=== PATIENT | female | born 1950 | race Caucasian/White ===

== ENCOUNTER 2024-12-30 12:13 | Emergency (ER) | payer MEDICARE, BC, SELFPAY ==
--- OUTSIDE RECORDS SUMMARY | 2024-12-30 12:16 | XMS_ITS | Clinical Summary ---
Author Organization [facility]formerly known as [facility] Address [address] [place] [id number] Care Team Providers Care Data Conversion Developer Name Role Phone Nigel, Val Villanueva MD Primary Care Provider Allergies Active Allergy Reactions Criticality Noted Date Comments Amoxicillin-Pot Clavulanate GI Upset 05/14/19 18 Cat Hair Standardized Allergenic Extract Itching 05/14/2017 Gadolinium-Containing Contrast Media Itching 05/14/2017 Levofloxacin *Unknown 05/14/2017 Pollen Extracts Itching 05/14/2017 Medications cholecalciferol, vitamin D3, 1,000 unit/drop drop Take by mouth. 0 8 Active triamcinolone (ARISTOCORT) 0.1 % ointmentIndication s:Lichenification Apply topically to affected area(s) two times daily. 30 g 2 Active valACYclovir (VALTREX) 1 gram tabletIndications: Herpes simplex infection Take 2 tablets by mouth at onset and 2 tablets 12 hours later 4 Tablet 4 3 Active ALPRAZolam (XANAX) 0.5 mg tabletIndications: Situational anxiety,Irritable bowel syndrome, unspecified type TAKE 1 TABLET BY MOUTH EVERY 12 HOURS IF NEEDED FOR ANXIETY. 30 Tablet 4 Active lisinopriL (PRINIVIL; ZESTRIL) 10 mg tabletIndications: Hypertension, unspecified type Take 1 Tablet (10 mg) by mouth once daily. 90 Tablet 3 4 Active pravastatin (PRAVACHOL) 20 mg tabletIndications: Hyperlipidemia, unspecified hyperlipidemia type Take 1 Tablet (20 mg) by mouth at bedtime. 90 Tablet 3 4 Active triamcinolone 0.1% (KENALOG IN ORABASE) 0.1 % pasteIndications:P apilloma of buccal mucosa Apply small amount to affected area in mouth 2 times a day. 5 g 1 5 Active FLUoxetine 40 mg capsuleIndications :Anxiety Take 1 Capsule (40 mg) by mouth once daily in the morning. 90 Capsule 3 5 Active Active Problems Problem Noted Date Diagnosed Date Skin cancer 11/05/2018 Overview (12/06/2022): 06/19/19 right upper arm, superficial BCC, ED&C treated 09/11/19, 2016 BCC, forehead, mohs treated 07/07, 2015 Right dorsal hand SCC, ED&C treated, 10/31/18 left dorsal forearm, superficial BCC, ED & C done 12/12/18 Yuki PATEL-C 11/22/22 right lower leg, atypical endophytic squamous proliferation, excised 11/30/22 Michaela Zhu MD HTN (hypertension) 05/14/2017 Hyperlipidemia, unspecified 05/14/2017 IBS (irritable bowel syndrome) 05/14/2017 Osteopenia 05/14/2017 Encounters Date Type Department Care Team Description 12/30/2024 Nurse Triage [facility] [address] [place] [address] Val Manning MD Head Injury 12/29/2024 7:25 AM CDT Office Visit [facility] [address] [place] [address] Val Manning MD Follow Up (10/20 Sores in mouth. About 2 weeks ago started using a mouth guard she got from the dentist to hopefully help the sore in her mouth and she now has more.) 12/29/2024 Travel 12/24/2024 Travel 11/28/2024 Orders Only [facility] Scanner 1 scan: (1-Ord) TAREEN DERMATOLOGY, BIOPSY BY SHAVE METHOD RIGHT DISTAL PRETIBIAL REGION, 11/28/2024 10/23/2024 Telephone [facility] [address] [place] [address] Val Manning MD Medication Management; Returning Call 2024 7:25 AM CDT Office Visit [facility] [address] [place] [address] Val Manning MD Sores In Mouth (Appeared in mouth in March 2024, went to ENT and was told it was related to anxiety. Was told to use Biotin mouth wash for the sores and was given medication to apply and it does not help.); Ear Problem (Ringing in left ear, been going on for a while. Now starting in right ear. Clicking in jaw near left ear.); General Illness/Other (Voice, feels she really has to think about it to get her voice and to form words.) 2024 Travel 10/17/2024 Travel from Last 3 Months Immunizations Immunization Administration Dates Next Due Amb Influenza, Inactivated A IIV4 (Age 65+ Years) Preserv Free 01/19/2020 COVID-19 VACCINE SPIKEVAX (M ODERNA 50MCG/0.5ML) 12YO+ PFS 01/17/2024 COVID-19 vaccine ([employer] NTech 30mcg/0.3mL) 12YO+ BIVALENT PF, MDV 01/19/2022 COVID-19 vaccine ([employer] NTech 30mcg/0.3mL) PF, MDV 06/13/2020,05/21/2020 Influenza A (H1N1), Inactivated 03/17/2009 Influenza, High-dose Inactivated 02/14/2017,100 10/2015 Influenza, Inactivated AIIV4 (Age 65+ Years) Preserv Free 01/04/2023,01/11/2022,02/02/2021 Influenza, Inactivated IIV3 (Age 65+ Years) Preserv Free 01/10/2024,01/29/2019,01/17/2018 Pneumococcal Poly,23-Valent (Pneumovax) 05/14/19 18 Pneumococcal conj 13-Valent (Prevnar 13) 016 Tdap 02/28/2019,02/09/2009 Zoster (Shingrix-RZV, recombinant) 08/05/2018, Zoster (Zostavax-ZVL, live) 03/03/2011 Family History Medical History Relation Name Comments Alzheimer's disease Father Aneurysm Father Cancer-breast Maternal Grandmother Brain cancer Sister Cancer-colon No Family History Cancer-ovarian No Family History Cancer-prostate No Family History Relation Name Status Comments Father Maternal Grandmother Sister Social History Tobacco Use Types Packs/Day Years Used Date Smoking Tobacco: Never Smokeless Tobacco: Never Tobacco Cessation:Counseling Given: Yes Alcohol Use Standard Drinks/Week Comments Yes 0 (1 standard drink = 0.6 oz pur e alcohol) occasionaly PHQ-2 Answer Date Recorded PHQ-2 TOTAL SCORE 2 04/18/2024 Social Connections Answer Date Recorded Do you often feel lonely or isolated from those around you? 0 04/18/2024 Alcohol Use Answer Date Recorded How often do you have a drink containing alcohol ? 0 12/29/2024 Average Number of Drinks Not on file 025 Frequency of Binge Drinking Not on file 11/2024 Financial Resource Strain Answer Date R ecorded Difficulty of Paying Living Expenses 3 04/18/2024 Difficulty of Paying Living Expenses Not on file 04/18/2024 Food Insecurity Answer Date Recorded Do you worry your food will run out before you are able to buy more? 1 04/18/2024 Transportation Needs Answer Date Record ed Does lack of transportation keep you from medica l appointments? 1 04/18/2024 Does lack of transportation keep you from work, meetings or getting things that you need? 1 04/18/2024 Housing Stability Answer Date Recorded What is your housing situation today? 1 04/18/2024 Utilities Answer Date Recorded Do you have trouble paying f or utilities (for example, heat, electricity, water, phone)? 1 04/18/2024 Comments No Sex and Gender Information Value Date Recorded Sex Assigned at Not on file Legal Sex Female 8:35 AM DNA SEQUENCING ASSOCIATE Gender Identity Not on file Sexual Orientation Not on file Obstetrics History Last Filed Vital Signs Vital Sign Reading Time Taken Comments Blood Pressure 146/74 12/29/2024 7:25 AM CDT Pulse 88 12/29/2024 7:25 AM CDT Temperature 36.4 C (97.6 F) 06/08/2020 10:12 AM DNA SEQUENCING ASSOCIATE Respiratory Rate 16 06/08/2020 10:12 AM DNA SEQUENCING ASSOCIATE Oxygen Saturation 99% 12/29/2024 7:25 AM CDT Inhaled Oxygen Concentration - - Weight 60.1 kg (132 lb 9.6 oz) 12/29/2024 7:25 A M CDT Height 165.1 cm (5' 5) 12/29/2024 7:25 AM CDT Body Mass Index 22.07 12/29/2024 7:25 AM CDT Plan of Treatment Upcoming Encounters Date Type Department Care Team (Late st Contact Info) Description 01/16/2025 8:00 AM CDT Ancillary Procedure [facility] [address] [id number] Health Maintenance Due Date Last Done Comments COVID-19 vaccine series ( season) 2024 01/17/2024, 02/05/2023, 01/19/2022, Additional history exists Influenza Vaccine (#1) 2024 , 01/04/2023, 01/11/2022, Additional history exists Medicare Wellness for age 65+ 04/19/2025 04/18/2024, 04/12/2023, 03/15/2022, Additional history exists Depression screening for age 12+ 05/12/2025 05/12/2024, 04/18/2024, 04/12/2023, Additional history exists Mammogram for age 45-75 05/12/2025 05/12/19, 05/09/2023, 05/03/2022, Additional history exists RSV vaccine for adults or (1 - 1-dose 75+ series) 2025 BMI (ht and wt on same day) for age 18+ 12/29/2025 12/29/2024, 2024, 04/18/2024, Additional history exists Fecal testing sDNA-FIT (Cologuard) for age 45-75 04/26/2027 04/26/2024 Tetanus booster 02/28/2029 02/28/2019, 02/09/2009 Lipids for age 45-75 04/18/2029 04/18/2024, 04/12/2023, 03/15/2022, Additional history exists Pneumococcal series for age 50+ Completed 05/14/2017, 02/29/2016 Zoster (shingles) series for age 50+ Completed 08/05/2018, 02/28/2018, 03/03/2011 Hepatitis C screening for age 18-79 Completed 03/08/2020 DEXA/DXA scan for age 65+ Completed 04/22/2024, Hepatitis B series for 19+ Aged Out N o longer eligible based on patient's age to complete this topic Procedures Procedure Name Priority Date/Time Associated Diagnosis Comments CBC WITH AUTO DIFFERENTIAL Routine 12/29/2024 8:09 AM CDT Aphthous ulcer Fatigue, unspecified type TSH WITH REFLEX Routine 12/29/2024 8:09 AM CDT Fatigue, unspecified type VITAMIN B12 Routine 12/29/2024 8:09 AM CDT Aphthous ulcer CBC WITH AUTO DIFFERENTIAL Routine 12/29/2024 8:09 AM CDT Aphthous ulcer Fatigue, unspecified type SCAN-OPERATIVE/PROCE DURE REPORT 11/28/2024 12:00 AM CDT XR MAMMO MONTY BILAT SCREEN Routine 05/12/2024 8:03 AM DNA SEQUENCING ASSOCIATE Visit for screening mammogram SDNA-FIT EXTERNAL (COLOGUARD) Routine 04/26/2024 6:30 PM DNA SEQUENCING ASSOCIATE Screening for colon cancer XR DXA BONE DENSITY 2 SITES AXIAL Routine 04/22/2024 9:10 AM DNA SEQUENCING ASSOCIATE Menopause LIPID PANEL W REFLEX MEASURED LDL Routine 04/18/2024 9:24 AM DNA SEQUENCING ASSOCIATE Hyperlipidemia, unspecified hyperlipidemia type ANTI HCV Routine 03/08/2020 8:52 AM DNA SEQUENCING ASSOCIATE Need for hepatitis C screening test from Last 3 Months or Most Recently Relevant to Health Maintenance Results * CBC WITH AUTO DIFFERENTIAL (12/29/2024 8:09 AM CDT) [facility] WHITE BLOOD CELL COUNT 7.5 3.8 - 10.8 Thousand/u L 12/30/2024 2:55 AM CDT [facility] RED BLOOD CELL COUNT 4.42 3.80 - 5.10 Million/uL 12/30/2024 2:55 AM CDT [facility] HEMOGLOBIN 13.1 11.7 - 15.5 g/dL 12/30/2024 2:55 AM CDT [facility] HEMATOCRIT 40.7 35.0 - 45.0 % 12/30/2024 2:55 AM CDT [facility] MCV 92.1 80.0 - 100.0 fL 12/30/2024 2:55 AM CDT [facility] MCH 29.6 27.0 - 33.0 pg 12/30/2024 2:55 AM CDT [facility] MCHC 32.2 32.0 - 36.0 g/dL 12/30/2024 2:55 AM CDT [facility] Comment: For adults, a slight decrease in the calculated MCHC value (in the range of 30 to 32 g/dL) is most likely not clinically significant; however, it should be interpreted with caution in correlation with other red cell parameters and the patient's clinical condition. RDW 13.4 11.0 - 15.0 % 12/30/2024 2:55 AM CDT [facility] PLATELET COUNT 312 140 - 400 Thousand/u L 12/30/2024 2:55 AM CDT [facility] MPV 10.1 7.5 - 12.5 fL 12/30/2024 2:55 AM CDT [facility] NEUTROPHILS 69.8 % 12/30/2024 2:55 AM CDT [facility] LYMPHOCYTES 21.2 % 12/30/2024 2:55 AM CDT [facility] MONOCYTES 6.2 % 12/30/2024 2:55 AM CDT [facility] EOSINOPHILS 2.1 % 12/30/2024 2:55 AM CDT [facility] BASOPHILS 0.7 % 12/30/2024 2:55 AM CDT [facility] ABSOLUTE NEUTROPHILS 5235 1500 - 7800 cells/uL 12/30/2024 2:55 AM CDT [facility] ABSOLUTE LYMPHOCYTES 1590 850 - 3900 cells/uL 12/30/2024 2:55 AM CDT [facility] ABSOLUTE MONOCYTES 465 200 - 950 cells/uL 12/30/2024 2:55 AM CDT [facility] ABSOLUTE EOSINOPHILS 158 15 - 500 cells/uL 12/30/2024 2:55 AM CDT [facility] ABSOLUTE BASOPHILS 53 0 - 200 cells/uL 12/30/2024 2:55 AM CDT [facility] Blood BLOOD SPECIMEN / Unknown [facility] / Unknown 12/29/2024 8:09 AM CDT 12/29/2024 8:09 AM CDT Val Manning MD HEMATOLOGY Final R esult Performing Organization Address [facility]/ZIP Co de Phone Number [facility] [address] [address], * TSH WITH REFLEX (12/29/2024 8:09 AM CDT) TSH W/REFLEX TO FT4 1.87 0.40 - 4.50 mIU/L 12/30/2024 6:02 AM CDT [facility] Blood BLOOD SPECIMEN / Unknown [facility] / Unknown 12/29/2024 8:09 AM CDT 12/29/2024 8:09 AM CDT Val Manning MD CHEMISTRY Final R esult Performing Organization Address [facility] Co de Phone Number [facility] [address] [address], * VITAMIN B12 (12/29/2024 8:09 AM CDT) VITAMIN B12 278 200 - 1100 pg/mL 12/30/2024 6:02 AM CDT [facility] Comment: Please Note: Although the reference range for vitamin B12 is 200-1100 pg/mL, it has been reported that between 5 and 10% of patients with values between 200 and 400 pg/mL may experience neuropsychiatric and hematologic abnormalities due to occult B12 deficiency; less than 1% of patients with values above 400 pg/mL will have symptoms. Blood BLOOD SPECIMEN / Unknown [facility] / Unknown 12/29/2024 8:09 AM CDT 12/29/2024 8:09 AM CDT Val Manning MD CHEMISTRY Final R esult [facility] [id number] [place] [address], * SCAN-OPERATIVE/PROCEDURE REPORT (11/28/2024 12:00 AM CDT) us Scanner OTHER Final Result * XR MAMMO MONTY BILAT SCREEN (05/12/2024 8:03 AM DNA SEQUENCING ASSOCIATE) Anatomical Region Laterality Modality BREASTS, Breast Left, Breast Right Bilateral Mammography Impressions 05/14/2024 1:38 PM DNA SEQUENCING ASSOCIATE There is no radiographic evidence for malignancy. Recommend annual mammograms. MAMMOGRAM ASSESSMENT: ACR 1 Negative PATIENTS: You will also receive a letter with your examination results in an easy to read format. If you have questions about your results, please contact your referring provider. Narrative 05/14/2024 1:38 PM DNA SEQUENCING ASSOCIATE For Patients: As a result of the Century Cures Act, medical imaging exams and procedure reports are released immediately into your electronic medical record. You may view this report before your referring provider. If you have questions, please contact your health care provider. XR MAMMO MONTY BILAT SCREEN [[id number]] CLINICAL HISTORY: This is an asymptomatic 73 y.o. patient. INDICATION FOR EXAM: Mammogram Screening. TECHNIQUE: CC & MLO views were obtained. This study was evaluated with the assistance of Computer-Aided Detection. Breast Tomosynthesis was used in interpretation. COMPARISON FILM: Yes 05/09/23 [facility] 05/03/22 [facility] FINDINGS: There are scattered areas of fibroglandular density. There are no dominant masses, suspicious micro calcifications or areas of architectural distortion. us Val Manning MD MAMMO Final R esult * SDNA-FIT EXTERNAL (COLOGUARD) (04/26/2024 6:30 PM DNA SEQUENCING ASSOCIATE) Pathologist [facility] NONINV COLON CA DNA+OCC BLD SCRN STL-IMP Negative Negative 05/01/2024 5:37 PM DNA SEQUENCING ASSOCIATE [facility] (CLIA #:[id number]) Comment: NEGATIVE TEST RESULT. A negative Cologuard result indicates a low likelihood that a colorectal cancer (CRC) or advanced adenoma (adenomatous polyps with more advanced pre-malignant features) is present. The chance that a person with a negative Cologuard test has a colorectal cancer is less than 1 in 1500 (negative predictive value >99.9%) or has an advanced adenoma is less than 5.3% (negative predictive value 94.7%). These data are based on a prospective cross-sectional study of 10,000 individuals at average risk for colorectal cancer who were screened with both Cologuard and colonoscopy. (Kirill Muller al, N Engl J Med 2014;370(14):3510-1901) The normal value (reference range) for this assay is negative. COLOGUARD RE-SCREENING RECOMMENDATION: Periodic colorectal cancer screening is an important part of preventive healthcare for asymptomatic individuals at average risk for colorectal cancer. Following a negative Cologuard result, the [place] Cancer Society and U.S. Multi-Society Task Force screening guidelines recommend a Cologuard re-screening interval of 3 years. References: [place] Cancer Society Guideline for Colorectal Cancer Screening: https://www.cancer.org/cancer/pynjx-zthrqu-dvwtrx/qcwvlziow-iyexrnaks-eeftggj/ac s-rec ommendations.html.; Andrey DK, Mely CR, Marilee NatarajanK, Colorectal Cancer Screening: Recommendations for Physicians and Patients from the U.S. Multi-Society Task Force on Colorectal Cancer Screening , Am J Gastroenterology 2017; 112:0582-8632. TEST DESCRIPTION: Composite algorithmic analysis of stool DNA-biomarkers with hemoglobin immunoassay. Quantitative values of individual biomarkers are not reportable and are not associated with individual biomarker result reference ranges. Cologuard is intended for colorectal cancer screening of adults of either sex, 45 years or older, who are at average-risk for colorectal cancer (CRC). Cologuard has been approved for use by the U.S. FDA. The performance of Cologuard was established in a cross sectional study of average-risk adults aged 50-84. Cologuard performance in patients ages 45 to 49 years was estimated by sub-group analysis of near-age groups. Colonoscopies performed for a positive result may find as the most clinically significant lesion: colorectal cancer [4.0%], advanced adenoma (including sessile serrated polyps greater than or equal to 1cm diameter) [20%] or non- advanced adenoma [31%]; or no colorectal neoplasia [45%]. These estimates are derived from a prospective cross-sectional screening study of 10,000 individuals at average risk for colorectal cancer who were screened with both Cologuard and colonoscopy. (Kirill Muller al, N Engl J Med 2014;370(14):8313-7327.) Cologuard may produce a false negative or false positive result (no colorectal cancer or precancerous polyp present at colonoscopy follow up). A negative Cologuard test result does not guarantee the absence of CRC or advanced adenoma (pre-cancer). The current Cologuard screening interval is every 3 years. ([place] Cancer Society and U.S. Multi-Society Task Force). Cologuard performance data in a 10,000 patient pivotal study using colonoscopy as the reference method can be accessed at the following location: www.Versium/results. Additional description of the Cologuard test process, warnings and precautions can be found at www.[employer] Technology[employer].com. Stool specimen (specimen) (Rectum) 04/26/2024 6:30 PM DNA SEQUENCING ASSOCIATE 04/29/2024 12:28 PM DNA SEQUENCING ASSOCIATE Val Manning MD URINE Final R esult [facility] (CLIA #:[id number]) [place] [address], * (ABNORMAL) XR DXA BONE DENSITY 2 SITES AXIAL (04/22/2024 9:10 AM DNA SEQUENCING ASSOCIATE) Anatomical Region Laterality Modality Spine, HIPS, HIPL, HIPR Other Impressions 04/29/2024 1:49 PM DNA SEQUENCING ASSOCIATE Osteopenia. RECOMMENDATIONS: The National Osteoporosis Foundation recommends pharmacologic treatment for patients with T-scores of -2.5 or less, patients with prior history of fragility fractures, or patients with 10-year probability of greater than 3% at hips or greater than 20% of suffering major osteoporotic fractures. Recommend continued optimization of calcium and vitamin D intake through dietary means and/or supplementation and regular exercise. Repeat scan recommended in 3-5 years. Michelle Sullivan PA-C [facility] 04/29/2024 Narrative 04/29/2024 1:49 PM DNA SEQUENCING ASSOCIATE For Patients: Results are automatically released to your [facility] ([employer]) account once available, in compliance with federal regulations. This means that you may see your results before your provider has had a chance to review them. Please allow 2-3 business days for your provider to comment on the results. XR DXA Bone Mineral Density (BMD) EXAM LOCATION: [address] [address] PATIENT NAME: Olga Gracia DATE OF : 1950 EXAM DATE: 04/22/2024 REQUESTING PROVIDER: Val Manning MD GENDER AT : female HEIGHT: 5' 5 (04/18/2024) WEIGHT: 140 lb (04/18/2024) MENOPAUSAL STATUS: Postmenopausal RACE/ETHNICITY: White RISK FACTORS: White Race CURRENT MEDICATION FOR BONE LOSS: NONE INDICATION: Follow-up of existing osteopenia and Menopause COMPARISON DATE(S): 2018 DXA scans are compared to prior studies for a patient only when the two (or more) studies were performed on the same scanner. It is not possible to compare data generated on one scanner to data from another because there are not standards in DXA equipment. This applies even if the two scanners are made by the same unarmed security officer. PROCEDURE: Dual-energy x-ray absorptiometry performed with routine technique. Reporting is completed in the form of a T-score. The T-score represents the standard deviation from peak bone mass based on young healthy adult. A Z-score is used for diagnosis in premenopausal women, and for men under the age of 50. FINDINGS: RESULT LUMBAR SPINE L1 - L4 BMD: 1.052 g/cm2 T-Score: - 1.1 Z-Score: + 0.6 Change from prior in 2018: Decrease 5.0%. RESULTS FEMUR Left femoral neck BMD: 0.791 g/cm2 T-Score: - 1.8 Z-Score: + 0.1 Change from prior in 2018: Decrease 4.8%. Right femoral neck BMD: 0.771 g/cm2 T-Score: - 1.9 Z-Score: + 0.0 Change from prior in 2018: Decrease 4.3%. Left hip BMD: 0.785 g/cm2 T-Score: - 1.8 Z-Score: - 0.1 Change from prior in 2018: Decrease 8.2%. Right hip BMD: 0.781 g/cm2 T-Score: - 1.8 Z-Score: - 0.1 Change from prior in 2018: Decrease 7.4%. WHO criteria: Normal: T-score at or above -1 SD Osteopenia: T-score between -1.1 and -2.4 SD Osteoporosis: T-score at or below -2.5 SD FRAX RISK CALCULATION (USED FOR OSTEOPENIA ONLY): 10-year probability of major osteoporotic fracture: 12.0%. 10-year probability of hip fracture: 2.8%. us Val Manning MD DEXA Final R esult * (ABNORMAL) LIPID PANEL W REFLEX MEASURED LDL (04/18/2024 9:24 AM DNA SEQUENCING ASSOCIATE) [facility] CHOLESTEROL, TOTAL 193 <200 mg/dL [facility] HDL CHOLESTEROL 70 > OR = 50 mg/dL [facility] TRIGLYCERIDES 108 <150 mg/dL [facility] LDL-CHOLESTEROL 103(H) mg/dL (calc) [facility] Comment: Reference range: <100 Desirable range <100 mg/dL for primary prevention; <70 mg/dL for patients with CHD or diabetic patients with > or = 2 CHD risk factors. LDL-C is now calculated using the Sachin calculation, which is a validated novel method providing better accuracy than the Friedewald equation in the estimation of LDL-C. Wil SAENZ et al. ERICKA. 2013;310(19): 1346-0899 (http://education.[facility] [place].revoPT/faq/STQ700) CHOL/HDLC RATIO 2.8 <5.0 (calc) [facility] NON HDL CHOLESTEROL 123 <130 mg/dL (calc) [facility] Comment: For patients with diabetes plus 1 major ASCVD risk factor, treating to a non-HDL-C goal of <100 mg/dL (LDL-C of <70 mg/dL) is considered a therapeutic option. Blood BLOOD SPECIMEN / Unknown 04/18/2024 9:24 AM DNA SEQUENCING ASSOCIATE 04/18/2024 9:24 AM DNA SEQUENCING ASSOCIATE Narrative [facility] - 04/19/2024 3:42 AM DNA SEQUENCING ASSOCIATE FASTING:YES FASTING: YES Val Manning MD CHEMISTRY Final R esult Performing Organization Address [facility] Co de Phone Number [facility] [address] [place] [address], [facility] [address] [place] [address] * ANTI HCV (03/08/2020 8:52 AM DNA SEQUENCING ASSOCIATE) Pathologist [facility] HEPATITIS C ANTIBODY Non-React alise Non-React alise 03/08/2020 2:16 PM DNA SEQUENCING ASSOCIATE [facility] Comment:Antibodies to HCV no t detected; does not exclude the possibility of exposure to HCV. Blood BLOOD SPECIMEN / Unknown Venipuncture / Unknown 03/08/2020 8:52 AM DNA SEQUENCING ASSOCIATE 03/08/2020 8:52 AM DNA SEQUENCING ASSOCIATE Val Manning MD SEND OUTS Final R esult [facility] [address] [place] [address], [place] from Last 3 Months or Most Recently Relevant to Health Maintenance Insurance [place] [id number] MEDICARE PART B HB ONLY [place] BLUE MR PB ONLY [place] BLUE HB ONLY MEDICARE PART A HB ONLY Care Teams Data Conversion Developer Relationship Specialty Start Date End Date Val Manning MD [address] [place] [address] PCP - General Family Practice 12/29/24
[2024-12-30 12:25] VITALS: BP 173/78; PULSE 96; RESP 16; TEMP 37.1; O2SAT 95; BMI 22.0
--- NOTE | 2024-12-30 12:44 | CRLHL7_ITS ---
For Patients: As a result of the Century Cures Act, medical imaging exams and procedure reports are released immediately into your electronic medical record. You may view this report before your referring provider. If you have questions, please contact your health care provider. Indication: Fall, vertigo Technique: Volumetric multidetector CT images of the head were obtained without the administration of low osmolar intravenous contrast. Comparison: None available Findings: There is no intra-axial or extra-axial fluid collection. There is no mass effect or midline shift. There is age-related cortical atrophy with mild sulcal widening and ex vacuo dilatation of the lateral ventricles. There are chronic small vessel disease changes in the subcortical and periventricular white matter without lost gibbs-white differentiation. The orbits and their contents are grossly within normal limits. There is demonstration of a small posterior vertex subgaleal hematoma. The underlying bony calvarium is grossly intact. The paranasal sinuses are clear. The mastoid air cells are well aerated. Impression: 1. Age-related changes of the brain without acute intracranial abnormality. Please note that all CT scans at this facility use dose modulation, iterative reconstruction, and/or weight-based dosing when appropriate to reduce radiation dose to as low as reasonably achievable. Dictated by Wesly Wong MD @ 12/30/2024 1:32:37 PM (Electronically Signed)
--- NOTE | 2024-12-30 13:14 | ED.DIZZY ---
HPI - Dizziness General Date Seen: 12/30/24 Chief Complaint: Dizziness/Vertigo Stated Complaint: fell and hit head yesterday Time Seen by Provider: 12/30/24 12:18 Source: patient, family, RN notes reviewed and old records reviewed Mode of arrival: ambulatory Limitations: no limitations History of Present Illness HPI Narrative: This delightful 74-year-old female presents ambulatory although holding onto her daughter, to walk, with a history of dizziness today, and just feeling off. A yesterday she came home from her doctor, she went there for consultation because she is having some neurologic symptoms i.e. weakness in her right hand, along with speech issues of slowness to speech that her doctor recommended she see Neurology for, she has an MRI scheduled for later in December. Yesterday she went to mow her lawn, went to use the cord to pull start, fell backwards hitting the back of her head on concrete, she was able to get up right away, although her recollection after that for the next 2 hour she says is a little fuzzy she went into the garage, could she was feeling a little bit dizzy, promptly went down to her knees and then crumpled to the floor for an unknown period of time but definitely less than an hour. She then was able to crawl into the house, eat some crackers, felt a little bit better. She has a little bit of a dull headache today, said she had a bump on the back of her head yesterday but today it is much improved. She does have any vision issues, did have 1 episode of vomiting this morning after she had a little bit of tea. No blood in the vomitus. But talk to her daughter who then brought her to the emergency room. No previous history of head injury she is on no anticoagulants at all. Denies any alcohol use. Confirmed by family. Does not feel nauseated currently, no numbness and tingling or weakness that is new in her hands or her feet. She was incontinent feces yesterday, after she crawled into the house. That was only x1. History of some mild sleep issues, history of some mild depression, history of mild hypertension hyperlipidemia Lives by herself independently, lost her last year, due to pancreatic cancer. MD elicited complaint: dizziness Pertinent past history: recent head injury Timing: constant Severity: moderate Description: lightheadedness and off-balance History of similar symptoms: No Exacerbating factors: movement/ambulation and change in body position Relieving factors: nothing Associated symptoms: denies other symptoms Related Data Home Medications ?Medication ?Instructions ?Recorded ?Confirmed alprazolam 0.5 mg tablet (Xanax) 0.5 mg PO DAILY 12/30/24 12/30/24 cholecalciferol (vitamin D3) 25 25 mcg PO DAILY 12/30/24 12/30/24 mcg (1,000 unit) capsule fluoxetine 40 mg capsule 40 mg PO DAILY 12/30/24 12/30/24 lisinopril 10 mg tablet 10 mg PO DAILY 12/30/24 12/30/24 pravastatin 20 mg tablet 20 mg PO DAILY 12/30/24 12/30/24 valacyclovir 1 gram tablet 500 mg PO DAILY 12/30/24 12/30/24 Allergies Allergy/AdvReac Type Severity Reaction Status Date / Time Gadolinium-Containing Allergy Mild itching Verified 12/30/24 12:37 Contrast Medi levofloxacin Allergy Unknown Verified 12/30/24 12:37 pollen extracts Allergy Unknown Verified 12/30/24 12:37 cat dander Allergy Verified 12/30/24 12:37 amoxicillin (From Augmentin) AdvReac Mild upset Verified 12/30/24 12:37 stomach clavulanic acid (From AdvReac Mild upset Verified 12/30/24 12:37 Augmentin) stomach Review of Systems Status of ROS: Reports: 10 or more systems reviewed and unremarkable except as noted in History and below Exam Narrative: Exam Narrative: On examination in room 5, she is delightful no apparent distress, very slow phone epic talking however. Almost seems a little bit of parkinsonism. Her pupils are equal round reactive to light she tracks normally with absence of nystagmus or TMs are normal, no Jang sign, over her high occiput area, there is a little bit of the swelling, consistent with a small hematoma. No open wound noted. Her neck has full range of motion, of flexion extension lateral flexion rotation, no tenderness to palpation over C-spine thoracic spine or lumbar spine, pre moves through 12 are normal oropharynx is normal, fundi appear normal bilaterally. With sharp discs. 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 Proximal distal muscle strength is normal, her joints have normal range of motion of her knees ankles and hips. Pelvis is normal, upper arms shoulders are normal elbows are normal, Const: Vital Signs, click to edit/add: Vital Signs - 24 hr 12/30/24 12:25 12/30/24 13:18 Temperature 98.8 F Pulse Rate [Pulse Oximeter] 96 86 Respiratory Rate 16 16 Blood Pressure [Le ft Upper Arm] 173/78 H 152/88 H Pulse Oximetry 95 98 Oxygen Delivery Me thod Room Air Room Air Documenting provider has reviewed patient's vital signs: yes Course Course ED Course: Patient did a road test here in the ER was able to walk independently, did not have any stepping out, although she did have a very narrow gait pattern, which may be consistent with her neurologic workup. We discussed further treatment I do believe she has a concussion, she can go home at the present time, I think persistent vomiting, or neurologic symptoms which we discussed should but be brought back for reassessment, I also think monitoring for the next 48 hours with family, and I discussed this with her daughter. She does not have a significant C-spine injury she is able to move this point, Vital Signs Vital signs: Initial Vital Signs Temperature 98.8 F 12/30/24 12:25 Temperature Source Temporal Artery Scan 12/30/24 12:25 Pulse Rate 96 12/30/24 12:25 Pulse Rhythm Regular 12/30/24 12:25 Pulse Strength 3+ Normal 12/30/24 12:25 Respiratory Rate 16 12/30/24 12:25 Blood Pressure 173/78 H 12/30/24 12:25 Blood Pressure Mean 109 H 12/30/24 12:25 Blood Pressure Position Sitting 12/30/24 12:25 Pulse Oximetry 95 12/30/24 12:25 Oxygen Delivery Method Room Air 12/30/24 12:25 Vital Signs Temperature 98.8 F 12/30/24 12:25 Pulse Rate 96 12/30/24 12:25 Respiratory Rate 16 12/30/24 12:25 Blood Pressure 173/78 H 12/30/24 12:25 Pulse Oximetry 95 12/30/24 12:25 Oxygen Delivery Method Room Air 12/30/24 12:25 Temperature 98.8 F 12/30/24 12:25 Pulse Rate 86 12/30/24 13:18 Respiratory Rate 16 12/30/24 13:18 Blood Pressure 152/88 H 12/30/24 13:18 Pulse Oximetry 98 12/30/24 13:18 Oxygen Delivery Method Room Air 12/30/24 13:18 MDM - Dizziness MDM Narrative Medical decision making narrative: Life-threatening differential diagnosis is considered include: Subarachnoid hemorrhage, subdural hemorrhage, epidural hemorrhage. Other differential diagnosis considered include concussion, closed head injury, or neck fracture. Life-threatening differential diagnosis considered include, CVA, other differential diagnosis include BPPV, labyrinthitis, Meniere's disease, vestibular neuronitis, migraine, multiple sclerosis, otitis media, viral syndrome as well as other etiologies Medical Records Attestation: I reviewed the patient's medical records. Lab Data Attestation: I reviewed the patient's lab results. Lab results narrative: Reviewed the laboratory work done at the [facility], by her doctor yesterday. Cbc was normal, TSH was normal, B12 level was normal. Imaging Data CT scan - head: Attestation: I have reviewed the pertinent imaging results. My impression: No acute findings intracranially. Radiologist's impression: [place] [address] Diagnostic Imaging Report Patient: Olga Gracia MR#: [id number] : 1950 Acct:[id number] Loc: ED Service Date: 12/30/[address]: Ordering Physician: Kyle Marie M.D. Date of Service: 12/30/24 Procedure(s): CT head/brain wo con Accession Number(s): [id number] cc: Kyle Marie M.D.; Val Manning M.D.~ For Patients: As a result of the 21st Century Cures Act, medical imaging exams and procedure reports are released immediately into your electronic medical record. You may view this report before your referring provider. If you have questions, please contact your health care provider. Indication: Fall, vertigo Technique: Volumetric multidetector CT images of the head were obtained without the administration of low osmolar intravenous contrast. Comparison: None available Findings: There is no intra-axial or extra-axial fluid collection. There is no mass effect or midline shift. There is age-related cortical atrophy with mild sulcal widening and ex vacuo dilatation of the lateral ventricles. There are chronic small vessel disease changes in the subcortical and periventricular white matter without lost gibbs-white differentiation. The orbits and their contents are grossly within normal limits. There is demonstration of a small posterior vertex subgaleal hematoma. The underlying bony calvarium is grossly intact. The paranasal sinuses are clear. The mastoid air cells are well aerated. Impression: 1. Age-related changes of the brain without acute intracranial abnormality. Please note that all CT scans at this facility use dose modulation, iterative reconstruction, and/or weight-based dosing when appropriate to reduce radiation dose to as low as reasonably achievable. Dictated by Wesly Wong MD @ 12/30/2024 1:32:37 PM (Electronically Signed) Discharge Plan Discharge Clinical Impression: Head injury due to trauma, Concussion, Dizziness Patient Disposition: Home w/ Parent or Adult Condition: Stable Instructions: Concussion (ED), Head Injury (DC), Dizziness (ED) Additional Instructions: Home, rest, recommend either a day or 2 with watchful supervision, brought back here if persistent vomiting, gait instability, weakness, either generalized or localized to 1 of the extremities, worsening, unequal pupils I think both or all of these are unlikely given the fact that we have a normal CT scan showing no evidence of any acute intracranial abnormality. Concussion symptoms can be worsened or lease lengthened by excessive reading, screen time, bright lights. Things that help this includes sleep. Tylenol is safe to use, with a concussion. No need to wake the person up after a few hours. Activity Level: Light activity Prescriptions: No Action alprazolam [Xanax] 0.5 mg tablet 0.5 mg PO DAILY fluoxetine 40 mg capsule 40 mg PO DAILY valacyclovir 1 gram tablet 500 mg PO DAILY lisinopril 10 mg tablet 10 mg PO DAILY pravastatin 20 mg tablet 20 mg PO DAILY cholecalciferol (vitamin D3) 25 mcg (1,000 unit) capsule 25 mcg PO DAILY Follow Up/Referrals: Val Manning MD [Primary Care Provider, Family Practice] Stand Alone Forms: [employer] Info Instructions
[2024-12-30 13:18] VITALS: BP 152/88; PULSE 86; RESP 16; O2SAT 98
== END 2024-12-30 14:09 | disposition home or self-care (01) ==
PROVIDERS: Emergency Provider Family Medicine; PCP Family Medicine
DX: R42 Dizziness and giddiness (principal); S09.90XA Unspecified injury of head, initial encounter; W19.XXXA Unspecified fall, initial encounter
CPT/HCPCS: 70450; 99284